=== PATIENT | male | born 1950 | race Caucasian/White ===

== ENCOUNTER → 2020-07-25 07:44 | Outpatient (CLI) | payer MEDICARE ==
--- NOTE | ~2020-07-25 | ST ---
PATIENT:SHERRILL LOCK MEDICAL RECORD: [id number] SEX: M LOCATION:[facility] ORDER #: ADMISSION DATE: 07/25/20 AGE OF PATIENT: 70 REFERRING PHYSICIAN: INTERPRETING PHYSICIAN: LASHAY LEIJA MD DATE OF SERVICE: 07/25/2020 NUCLEAR STRESS TEST Gated: Normal. Normal wall motion, calculated EF 56%. SPECT imaging: SPECT imaging in the short axis view shows a fixed inferoapical defect without significant reversibility. This confirmed in the horizontal axis with a fixed inferoapical defect. Vertical axis; vertical axis shows a fixed apical defect. FINAL IMPRESSION: 1. Normal gated, normal wall motion, normal EF 56%. 2. Mildly abnormal SPECT imaging with a fixed apical defect seen in all 3 views. Defect severity is mild, defect size is small. FINAL IMPRESSION: The scan is certainly consistent with underlying coronary artery disease. No significant reversibility seen here. Continue risk factor modification. Medical management is recommended. TRANSINT:[id number] Voice Confirmation ID: [id number] DOCUMENT ID: [id number] LASHAY LEIJA MD CC: [id number] DICTATION DATE: 07/26/20 1213 WASTE WATER OR WATER PLANT OPERATOR: 07/27/20 0257 DEP CLI 07/25/20 [place] [id number] [place] [id number]
--- NOTE | ~2020-07-25 | EC ---
PATIENT:SHERRILL LOCK DATE OF SERVICE: 07/25/20 SEX: M MEDICAL RECORD: [id number] DATE OF : 46 LOCATION:D[facility] AGE OF PATIENT: 70 ADMISSION DATE: 07/25/20 REFERRING PHYSICIAN: INTERPRETING PHYSICIAN: LASHAY LEIJA MD ECHOCARDIOGRAM REPORT ECHO CHARGES 4 ECHO COMPLETE Date: 07/25/20 CLINICAL DIAGNOSIS: ASSESS EF / LEFT ATRIAL SIZE HX OF CAD/CABG/AVR/PACEMAKER ATRIAL FIB ECHOCARDIOGRAPHIC MEASUREMENTS (adult normal given) AC root (d.<3.7cm) 4.6 cm LV Septum d (<1.2 cm> 1.3 cm Valve Excursion 1.8 cm LV Septum (systole) 1.7 cm Left Atria (s.<4.0cm> 3.7 cm LVPW d(<1.2cm) 1.3 cm RV (d.<2.3cm) 3.4 cm LVPW (sytole) 2.2 cm LV diastole(<5.6CM) 6.1 cm MV E-F(>70mm/sec) cm LV systole 3.5 cm LVOT Diameter 2.1 cm MV exc.(>10mm) 2.0 cm Est.ejection fraction (50-75%) % DOPPLER: LVIT cm/sec A 76.0 cm/sec E 103.0 cm/sec LA cm/sec RVSP 40 mmHg LVOT 82 cm/sec AOP1/2T 923 m/s Asc. Ao 227 cm/sec RVOT 87 cm/sec RA cm/sec PA 117 cm/sec AV Gradient Peak 20.66mmHg AV Mean 11.54mmHg AV Area 1.2 cm MV Gradient Peak 4.57 mmHg MV Mean 1.54 mmHg MV Area cm COMMENTS: Water Supply Technician: 2 CLARISSA HARRIS Creative Recruiter: 3 Dr. Demarco TAPE# PACS Pericardial Effusion N DATE OF SERVICE: Adequate 2D, color-flow imaging, spectral Doppler, and M-Mode. FINDINGS: LVH is present. LV internal dimensions are normal. Wall motion is normal. EF is greater than or equal to 55%. Aortic valve replacement with a tissue prosthesis noted with acceptable Doppler velocity and mild AI. Left atrium is normal. Mitral valve is mildly thickened. Mitral annular calcification. Mild MR. Right side is grossly normal. Mild TR. ECHOCARDIOGRAM REPORT [id number] SHERRILL LOCK TRANSINT:[id number] Voice Confirmation ID: [id number] DOCUMENT ID: [id number] LASHAY LEIJA MD CC: [id number] DICTATION DATE: 07/26/20 1313 VISUAL MERCHANDISING ASSISTANT: 07/26/20 2311 DEP CLI 07/25/20 [place] [id number] [place] [address]
== END | disposition home or self-care (01) ==
LOC: D.HCCECHO 07:44
PROVIDERS: ATTEND Internal Medicine Interventional Cardiology
DX: I25.10 Atherosclerotic heart disease of native coronary artery without angina pectoris (principal)